=== PATIENT | male | born 1985 | race Caucasian/White ===

== ENCOUNTER → 2016-09-09 | Outpatient (CLI) | payer BC ==
--- NOTE | 2016-09-09 15:31 | DI ---
US SCROTUM,09/09/2016 2:20 PM: Clinical History: Left testicular pain since yesterday. Previous Exam: None at this facility. Findings: Multiple grayscale and color Doppler sonographic images are obtained through the testicles bilaterall y, and demonstrate normal homogeneous testicular echotexture intratesticular masses. There is a 4 mm left epididymal head cyst. There is normal Doppler flow within both testicles. There are small bilateral hydroceles. There is a left small varicocele. Impression: A 4 mm simple cyst within the left epididymal head. Small left varicocele. Small bilateral pleural effusions.
== END ==
LOC: US 14:11
DX: N50.812 Left testicular pain (principal); N43.2 Other hydrocele
CPT/HCPCS: 76870